=== PATIENT | female | born 1960 | race Caucasian/White ===

== ENCOUNTER → 2016-11-10 | Outpatient (CLI) | payer MEDICARE, MEDICAID ==
[~2016-11-10] MED LIST: /OCUVTA PO; ABIL10TA OR; ACET500C; ACET500C PO; BACL10TA2 PO; BYSTOLIC; ESTR1TAB PO; FERR325T; GABA300C3 PO; IRON325T3 PO; LISI10TA4 PO; MELA3TAB17 PO; MULTIVIT OR; NAPR500T; NEBIVOLOL; NEUR300C OR; OTC SINUS MED; OYST500T OR; ROBA500T PO; TIZA4CAP3 PO; TRAM50TA2; TRAM50TA2 OR; VIT D 2000 PO; VITA-193 PO; VITA400C2 PO; VITA500C OR; VITAMIN B COMPLE1 OR; VITAMIN B12 OR; VITAMIN D50000 UNT; VOLT1GEL24 TD; WELL100T OR; ZANA4CAP OR
--- NOTE | 2016-11-10 15:16 | REPMRS ---
Patient History The patient states she had a clinical breast exam in 10/2016. Patient is postmenopausal. Family history of breast cancer in maternal grandmother under age 50. Benign US guided breast biopsy of the left breast, May 01, 2011. Took hormonal contraceptives for 10 years. Took estrogen for 3 years. Digital Woman Screen Mammo: November 10, 2016 - Exam #: [id number] Bilateral CC and MLO view(s) were taken. Technologist: Rachel Ojeda, Technologist Prior study comparison: April 24, 2014, bilateral bilat screen digital mammo, performed at [facility] ([facility]). March 30, 2013, bilateral bilat screen digital mammo, performed at [facility] ([facility]). March 07, 2012, bilateral bilat screen digital mammo, performed at [facility] ([facility]). FINDINGS: There are scattered fibroglandular densities. There has been no change in the appearance of the mammogram from the prior studies. There is a mild amount of scattered fibroglandular density which is fairly symmetric. There is no interval development of dominant mass, architectural distortion, or clustered microcalcification suggestive of malignancy. ASSESSMENT: BI-RADS/ACR category 1 mammogram. Negative. Recommendation Routine screening mammogram in 1 year (for women over age 40). This mammogram was interpreted with the aid of an FDA-approved computer-aided dectection system. Electronically Signed By: Max Donnelly MD 11/10/16 [id number]
== END ==
LOC: M WHC 14:26
PROVIDERS: ATTEND Obstetrics & Gynecology
DX: Z12.31 Encounter for screening mammogram for malignant neoplasm of breast (principal); Z78.0 Asymptomatic menopausal state; Z92.0 Personal history of contraception

== ENCOUNTER → 2017-09-08 | Outpatient (REF) | payer MEDICARE, MEDICAID ==
[~2017-09-08] MED LIST changes: +GABA-282 PO; -GABA300C3 PO; +VOLT1GEL15 TD; -VOLT1GEL24 TD
== END ==
LOC: M LAB REF 12:22 → M LABDRWAD 12:22
PROVIDERS: ATTEND Psychiatry & Neurology Psychiatry
DX: Z79.899 Other long term (current) drug therapy (principal)

== ENCOUNTER → 2017-09-13 | Outpatient (CLI) | payer MEDICARE, MEDICAID ==
--- NOTE | 2017-09-13 17:28 | REP ---
MRI LEFT FOOT: Multiple sequence obtained in the axial, coronal, and saggital planes. Peroneus brevis and longus tendons distal to the ankle are intact with no tenosynovitis. The flexor hallucis longus, flexor digitorum longus and posterior tibial tendons also appear intact below the ankle. Anterior talofibular ligament is intact. Distal Achilles tendon is intact. Plantar tendon is intact. Normal amount of joint fluid is seen in the hind foot. Small oval cystic structure is seen dorsal to the talonavicular joint measuring approximately 9 x 5 mm. No other cystic nodules are seen. There is mild marrow edema in the base of the 2nd metatarsal which is probably secondary to arthritic changes at the adjacent tarsal metatarsal joint. No other significant abnormal marrow signal is seen. IMPRESSION: No evidence of abnormality in the distal peroneus brevis or longus tendons. No other evidence of tendon or ligament tear. Small cyst dorsal to the talonavicular joint measuring 9 x 5 mm. Mild marrow edema in the base of the 2nd metatarsal, likely secondary to arthritic changes at the adjacent tarsal metatarsal joint. Signed by Isak Jarquin MD 09/15/2017 08:59 A
== END ==
LOC: M RAD 13:34
PROVIDERS: ATTEND Podiatrist
DX: M76.72 Peroneal tendinitis, left leg (principal)

== ENCOUNTER → 2018-06-23 | Outpatient (CLI) | payer MEDICARE, MEDICAID | LOC: M WHC 13:36 | DX: Z12.31 Encounter for screening mammogram for malignant neoplasm of breast (principal); Z98.890 Other specified postprocedural states; Z92.0 Personal history of contraception; Z12.4 Encounter for screening for malignant neoplasm of cervix | CPT/HCPCS: 77067; G0123 ==

== ENCOUNTER → 2018-06-23 | Outpatient (REF) | payer MEDICARE, MEDICAID | LOC: M SFHCWAGY 15:13 | DX: Z12.4 Encounter for screening for malignant neoplasm of cervix (principal) | CPT/HCPCS: G0123 ==

== ENCOUNTER → 2018-08-01 | Outpatient (REF) | payer MEDICARE, MEDICAID ==
[2018-08-01 16:26] LABS: FREE T4 0.79 NG/DL (0.76-1.46)
== END ==
LOC: M LABDRAW1 12:16
DX: R94.6 Abnormal results of thyroid function studies (principal)
CPT/HCPCS: 84443

== ENCOUNTER → 2018-09-08 | Outpatient (CLI) | payer MEDICARE | LOC: M RAD 15:37 | DX: M48.061 Spinal stenosis, lumbar region without neurogenic claudication (principal); M51.26 Other intervertebral disc displacement, lumbar region; M47.896 Other spondylosis, lumbar region | CPT/HCPCS: 72148 ==

== ENCOUNTER → 2019-06-23 | Outpatient (CLI) | payer MEDICARE, MEDICAID ==
[~2019-06-23] MED LIST changes: -/OCUVTA PO; +CYAN500T9 PO; -GABA-282 PO; +GABA-843 PO; +PROS2TAB2 PO; +TIZA4CAP PO; -TIZA4CAP3 PO; -VITA-193 PO
--- NOTE | 2019-06-23 15:17 | REPMRS ---
Patient History The patient states she had a clinical breast exam in 06/2019. Family history of breast cancer under age 50 in maternal grandmother. Benign US guided breast biopsy of the left breast, May 01, 2011. Took hormonal contraceptives for 10 years. Took estrogen for 3 years. 3D TOMOSYNTHESIS WAS PERFORMED. The [facility] lifetime risk for breast cancer is 9.8%. Digital Woman Screen Mammo: June 23, 2019 - Exam #: [id number] Bilateral CC and MLO view(s) were taken. Technologist: Tri Molina, Technologist Prior study comparison: June 23, 2018, bilateral digital woman screen mammo performed at [facility] [employer] to [employer] [facility]. November 10, 2016, digital woman screen mammo performed at [facility] [employer] [facility]. FINDINGS: There are scattered fibroglandular densities. There has been no change in the appearance of the mammogram from the prior studies. There is a mild amount of residual fibroglandular tissue which is fairly symmetric. There is no interval development of dominant mass, architectural distortion, or clustered microcalcification suggestive of malignancy. Assessment: BI-RADS/ACR category 1 mammogram. Negative Mammogram. Recommendation Routine screening mammogram in 1 year (for women over age 40). This mammogram was interpreted with the aid of an FDA-approved computer-aided dectection system. Electronically Signed By: Isak Jarquin MD 06/23/19 [id number]
== END ==
LOC: M WHC 13:29
PROVIDERS: ATTEND Nurse Practitioner Women's Health
DX: Z12.31 Encounter for screening mammogram for malignant neoplasm of breast (principal); Z80.3 Family history of malignant neoplasm of breast; Z86.018 Personal history of other benign neoplasm; Z92.0 Personal history of contraception; Z92.23 Personal history of estrogen therapy
CPT/HCPCS: 77063; 77067; G0463

== ENCOUNTER → 2019-11-09 | Outpatient (CLI) | payer MEDICARE, MEDICAID ==
--- NOTE | 2019-11-09 18:40 | REP ---
Left forearm two views : There is no fracture or dislocation. Mineralization and joint spaces are normal. There are no calcifications or foreign bodies. Impression: Negative left forearm . Electronically Signed by Isak Cha MD 11/09/2019 06:31 P
== END ==
LOC: M ADAMS 18:17
PROVIDERS: ATTEND Physician Assistant
DX: S50.12XA Contusion of left forearm, initial encounter (principal); X58.XXXA Exposure to other specified factors, initial encounter; Y92.89 Other specified places as the place of occurrence of the external cause

== ENCOUNTER → 2019-12-08 | Outpatient (CLI) | payer MEDICARE, MEDICAID ==
[2019-12-08 12:22] LABS: ALBUMIN 3.5 GM/DL (3.2-5.2); BILIRUBIN,TOTAL 0.5 MG/DL (0.2-1.0); CALCIUM LEVEL 8.9 MG/DL (8.8-10.2); CHOLESTEROL RISK RATIO 2.131 (<5); CREATININE FOR GFR 2.27 MG/DL (0.55-1.30); GLOMERULAR FILTRATION RATE 23.4 (>45); THYROID STIMULATING HORMONE 0.473 uIU/ML (0.358-3.740); TOTAL PROTEIN 5.9 GM/DL (6.4-8.2)
== END ==
LOC: M PLALAB 09:13
PROVIDERS: ATTEND Physician Assistant
DX: Z00.01 Encounter for general adult medical examination with abnormal findings (principal); E21.2 Other hyperparathyroidism; Z79.899 Other long term (current) drug therapy

== ENCOUNTER → 2020-06-25 | Outpatient (CLI) | payer MEDICARE, MEDICAID ==
[~2020-06-25] MED LIST changes: +CYAN500T10 PO; -CYAN500T9 PO
--- NOTE | 2020-06-25 15:18 | REPMRS ---
Patient History The patient states she had a clinical breast exam in June 2020. Family history of breast cancer under age 50 in maternal grandmother. Benign US guided breast biopsy of the left breast, May 01, 2011. Took hormonal contraceptives for 10 years. Took estrogen for 3 years. 3D TOMOSYNTHESIS WAS PERFORMED. [facility] lifetime risk for breast cancer is 9.4%. VOLPARA DENSITY A. Digital Woman Screen Mammo: June 25, 2020 - Exam #: [id number] Bilateral CC and MLO view(s) were taken. Technologist: RT Jim Prior study comparison: June 23, 2019, bilateral digital woman screen mammo performed at [facility]. June 23, 2018, bilateral digital woman screen mammo performed at [facility]. FINDINGS: There are scattered fibroglandular densities. There has been no change in the appearance of the mammogram from the prior studies. There is a mild amount of residual fibroglandular tissue which is fairly symmetric. There is no interval development of dominant mass, architectural distortion, or clustered microcalcification suggestive of malignancy. Assessment: BI-RADS/ACR category 1 mammogram. Negative Mammogram. Recommendation Routine screening mammogram in 1 year (for women over age 40). This mammogram was interpreted with the aid of an FDA-approved computer-aided dectection system. Electronically Signed By: Isak Jarquin MD 06/25/20 1524
== END ==
LOC: M WHC 13:57
PROVIDERS: ATTEND Nurse Practitioner Women's Health
DX: Z01.419 Encounter for gynecological examination (general) (routine) without abnormal findings (principal); Z12.31 Encounter for screening mammogram for malignant neoplasm of breast; Z86.018 Personal history of other benign neoplasm; Z92.0 Personal history of contraception; Z92.23 Personal history of estrogen therapy
CPT/HCPCS: 77063; 77067; G0101

== ENCOUNTER → 2020-10-16 | Outpatient (CLI) | payer MEDICARE, MEDICAID ==
[~2020-10-16] MED LIST changes: -CYAN500T10 PO; +GABA-282 PO; -GABA-843 PO; +VITA500T37 PO
[2020-10-16 12:21] LABS: CHOLESTEROL RISK RATIO 2.121 (<5)
[2020-10-16 13:21] LABS: HEMOGLOBIN A1c 5.1 %
== END ==
LOC: M PLALAB 08:48
PROVIDERS: ATTEND Psychiatry & Neurology Psychiatry
DX: Z79.899 Other long term (current) drug therapy (principal)

== ENCOUNTER → 2020-12-24 | Outpatient (CLI) | payer MEDICARE, MEDICAID ==
[~2020-12-24] MED LIST changes: +LISI10TA22 PO; -LISI10TA4 PO
--- NOTE | 2020-12-24 15:48 | REPPI ---
INDICATION: R06.02 SHORTNESS OF BREATH. COMPARISON: None TECHNIQUE: Upright PA and lateral chest. FINDINGS: Lung murphy are clear is set for small linear densities in the left costophrenic angle, nonspecific, atelectasis versus scarring. Cardiac size is upper normal. The reji and mediastinum are unremarkable. There is thoracic scoliosis convex right. Skeletal structures are otherwise unremarkable. IMPRESSION: Small horizontal linear densities in the left costophrenic angle which could represent atelectasis or scarring. Scoliosis. Otherwise, negative PA and lateral chest. <Electronically signed by Isak Cha > 12/24/20 [id number]
== END ==
LOC: M PLAIMG 12:05
PROVIDERS: ATTEND Physician Assistant
DX: R06.02 Shortness of breath (principal)

== ENCOUNTER → 2021-01-24 | Outpatient (REF) | payer MEDICARE, MEDICAID ==
[2021-01-24 17:39] LABS: PERCENT SATURATION 18.1 % (13.2-45.0)
== END ==
LOC: M LAB REF 16:34
PROVIDERS: ATTEND Internal Medicine Nephrology
DX: N18.4 Chronic kidney disease, stage 4 (severe) (principal); E61.1 Iron deficiency

== ENCOUNTER → 2021-04-11 | Outpatient (CLI) | payer MEDICARE, MEDICAID ==
[~2021-04-11] MED LIST changes: +BUPR1TAB56 PO; +CETI-24 PO; +GREE400C PO; +HYDR-3713 PO; +HYDR12.55 PO; +LEXA1TAB2 PO; +MAGN400C2 PO; +ROPI1TAB3 PO; +TRAM50TA2 PO
== END ==
LOC: M PLAIMG 09:41
PROVIDERS: ATTEND Nurse Practitioner Family
DX: M47.812 Spondylosis without myelopathy or radiculopathy, cervical region (principal); M25.511 Pain in right shoulder

== ENCOUNTER → 2021-06-03 | Outpatient (REF) | payer MEDICARE, MEDICAID ==
[~2021-06-03] MED LIST changes: -BUPR1TAB56 PO; -CETI-24 PO; -GREE400C PO; -HYDR-3713 PO; -HYDR12.55 PO; -LEXA1TAB2 PO; -MAGN400C2 PO; -ROPI1TAB3 PO; -TRAM50TA2 PO
== END ==
LOC: M LAB REF 17:03
PROVIDERS: ATTEND Internal Medicine Nephrology
DX: E83.41 Hypermagnesemia (principal)

== ENCOUNTER → 2021-06-17 | Outpatient (CLI) | payer MEDICARE, MEDICAID ==
[~2021-06-17] MED LIST changes: +BUPR1TAB56 PO; +CETI-24 PO; +GREE400C PO; +HYDR-3713 PO; +HYDR12.55 PO; +LEXA1TAB2 PO; +MAGN400C2 PO; +ROPI1TAB3 PO; +TRAM50TA2 PO
--- NOTE | 2021-06-17 13:02 | REPVR ---
PROCEDURE INFORMATION: Exam: MR Cervical Spine Without Contrast Exam date and time: 06/17/2021 9:49 AM Age: 61 years old Clinical indication: Radicular pain (radiculopathy); Cervical region; Additional info: Cervical spine pain to right arm TECHNIQUE: Imaging protocol: Multiplanar magnetic resonance images of the cervical spine without contrast. COMPARISON: CR Spine, Cervical 04/11/2021 10:07 AM FINDINGS: Vertebrae: Unremarkable. Spinal cord: Normal signal. No cord compression. C2-C3: There is disc desiccation. C3-C4: There is disc desiccation. There is mild ventral ridging which flattens the ventral thecal sac. There is mild spinal canal stenosis. C4-C5: There is degenerative disc disease including disc space narrowing and dessication. There is a moderate disc/osteophyte complex, partial toward the left, that flattens the ventral thecal sac and compromises the left neural foramen. There is bilateral uncovertebral joint arthropathy, worse on the left. There is moderate left-sided neuroforaminal narrowing. C5-C6: There is disc desiccation. There is a moderate disc/osteophyte complex, partial toward the right, that flattens the ventral thecal sac and compromises the right neural foramen. There is bilateral uncovertebral joint arthropathy, worse on the right. There is moderate right-sided neuroforaminal narrowing. C6-C7: There is disc desiccation. C7-T1: No significant disc disease. No significant spinal stenosis. Soft tissues: Unremarkable. IMPRESSION: Multilevel degenerative changes causing varying degrees of neuroforaminal narrowing. Moderate right-sided neural foraminal narrowing at C5/6. Please see details above. Electronically signed by: Rigo Trejo On 06/17/2021 13:02:42 PM
== END ==
LOC: M RAD 09:05
PROVIDERS: ATTEND Nurse Practitioner Family
DX: M54.12 Radiculopathy, cervical region (principal)

== ENCOUNTER 2021-07-06 11:34 | Emergency (ER) | payer MEDICARE, MEDICAID ==
[~2021-07-06] VITALS: Ht 175.3 cm; Wt 133.0 kg
[~2021-07-06 11:34] MED LIST changes: -BUPR1TAB56 PO; -CETI-24 PO; -GREE400C PO; -HYDR-3713 PO; -HYDR12.55 PO; -LEXA1TAB2 PO; -MAGN400C2 PO; -ROPI1TAB3 PO; -TRAM50TA2 PO
--- NOTE | 2021-07-06 12:04 | REP ---
INDICATION: TRAUMA. COMPARISON: None. TECHNIQUE: Four views of the right wrist are provided. FINDINGS: Four views of the right wrist demonstrate impacted comminuted fracture of the distal radial metaphysis with dorsal displacement and some apex volar angulation. There is an associated fracture of the ulnar styloid which is also slightly comminuted. Diffuse osteopenia is noted. No carpal or metacarpal fracture is seen. IMPRESSION: Impacted comminuted mildly displaced distal radial fracture. Associated ulnar styloid chip fracture. <Electronically signed by Max Donnelly > 07/06/21 [id number]
--- NOTE | 2021-07-06 12:06 | REP ---
INDICATION: TRAUMA. COMPARISON: None. TECHNIQUE: AP and lateral views of the right forearm. FINDINGS: AP and latter views of the oral right forearm demonstrate a comminuted and impacted fracture of the distal radius as described in the wrist radiographs. There is an associated also slightly comminuted fracture of the ulnar styloid. No proximal radial or ulnar fracture is appreciated. There are 2 metallic densities in the antecubital soft tissues possibly surgical clips. IMPRESSION: Distal radial and ulnar fractures. No more proximal fracture seen. Metallic densities in the soft tissues of the antecubital fossa. <Electronically signed by Max Donnelly > 07/06/21 [id number]
[2021-07-06] MEDS ORDERED: LEXA1TAB2 PO (12:10)
[2021-07-06] MEDS ORDERED: HYDR12.55 PO (12:10)
[2021-07-06] MEDS ORDERED: GREE400C PO (12:10)
[2021-07-06] MEDS ORDERED: ROPI1TAB3 PO (12:10)
[2021-07-06] MEDS ORDERED: BUPR1TAB56 PO (12:10)
[2021-07-06] MEDS ORDERED: TRAM50TA2 PO (12:10)
[2021-07-06] MEDS ORDERED: MAGN400C2 PO (12:10)
[2021-07-06] MEDS ORDERED: fentaNYL 100 MCG/2 ML INJECTION (J3010) IV ONE (12:30)
[2021-07-06] MEDS ORDERED: LIDOCAINE 2% MDV 20ML VIAL SC ONE (12:35)
[2021-07-06] MEDS ORDERED: ONDANSETRON 4MG/2ML VIAL IV ONE (12:55)
[2021-07-06 13:03] LABS: BASO # 0.1 10^3/uL (0.0-0.2); BASO % 0.7 % (0.0-1.0); EOS # 0.2 10^3/uL (0.0-0.5); EOS % 2.4 % (0.0-3.0); HEMATOCRIT 43.4 % (36.0-47.0); HEMOGLOBIN 13.6 g/dl (12.0-15.5); LYMPH # 0.9 10^3/uL (1.5-5.0); LYMPH % 12.9 % (24.0-44.0); MEAN CORPUSCULAR HEMOGLOBIN 31.3 pg (27.0-33.0); MEAN CORPUSCULAR HGB CONC 31.3 g/dl (32.0-36.5); MEAN CORPUSCULAR VOLUME 99.8 fl (80.0-96.0); MONO # 0.5 10^3/uL (0.0-0.8); MONO % 7.5 % (2.0-8.0); NEUTROPHILS # 5.4 10^3/uL (1.5-8.5); NEUTROPHILS % 76.1 % (36.0-66.0); PLATELET COUNT, AUTOMATED 199 10^3/uL (150-450); RED BLOOD COUNT 4.35 10^6/uL (4.00-5.40); WHITE BLOOD COUNT 7.1 10^3/uL (4.0-10.0)
--- NOTE | 2021-07-06 13:08 | REP ---
INDICATION: fall pain with palpation. COMPARISON: None. TECHNIQUE: Four views of the right elbow. FINDINGS: Four views of the right elbow show no evidence of fracture or subluxation. There is minimal proximal ulnar spurring. There are 3 metallic densities and some vascular calcification in the antecubital soft tissues. A tortuous vascular structure is seen in the anterior soft tissues of the upper arm. The findings are consistent with an arteriovenous fistula for dialysis. IMPRESSION: Patient is status post AV fistula antecubital fossa. No acute bony abnormality. <Electronically signed by Max Donnelly > 07/06/21 0454
[2021-07-06 13:20] LABS: CALCIUM LEVEL 8.6 MG/DL (8.8-10.2); CREATININE FOR GFR 2.4 MG/DL (0.55-1.30); GLOMERULAR FILTRATION RATE 21.8 (>45); POTASSIUM SERUM 4.7 MEQ/L (3.5-5.1)
[2021-07-06] MEDS ORDERED: HYDR-3713 PO (15:18)
--- NOTE | 2021-07-06 15:43 | REP ---
INDICATION: c arm for reduction. COMPARISON: Comparison wrist radiographs are from earlier this date. TECHNIQUE: Two views, 74 seconds of fluoroscopy time is reported. FINDINGS: A sequence of 2 fluoroscopically obtained spot radiographs of the right wrist through overlying cast material document closed reduction IMPRESSION: Procedural imaging. <Electronically signed by Max Donnelly > 07/06/21 [id number]
--- NOTE | 2021-07-06 15:47 | REP ---
INDICATION: post reduction. COMPARISON: Wrist radiographs from earlier this date. TECHNIQUE: Helical scanning is acquired. The right wrist is scanned through overlying cast material. 2 mm axial images are re-formatted. Coronal and sagittal MPR images are provided. Surface rendered 3D imaging is generated. FINDINGS: There is improved alignment in the distal radial fracture. There is no visible angulation or dorsal displacement. However, the comminuted distal radial fracture is again seen to be impacted. On coronal MPR images there is 9 mm of impaction on the radial surface of the distal radius. On sagittal MPR images there is 4.5 mm of impaction visible in the distal radius. The distal radial fracture is intra-articular. The articular margin is well aligned. There is an ulnar styloid chip fracture. No carpal fracture is seen. IMPRESSION: Comminuted impacted fracture of the distal radial metaphysis in improved alignment. Ulnar styloid chip fracture. <Electronically signed by Max Donnelly > 07/06/21 [id number]
[2021-07-06 16:16] VITALS: BP 186/86
--- NOTE | 2021-07-06 17:56 | CR ---
CONSULTATION DATE: 07/06/2021 REASON FOR CONSULTATION: Right wrist pain. CHIEF COMPLAINT: Right wrist pain. HISTORY OF PRESENT ILLNESS: The patient is a 61-year-old female who was walking earlier today where she fell onto her outstretched right hand. She had immediate onset of pain in her wrist and deformity and presented to the emergency department for evaluation. She also had a little of pain in her elbow but this was minimal. She denied any numbness or tingling but just severe pain to her wrist. No other areas of pain other than what is above. PAST MEDICAL HISTORY: Hypertension, depression and kidney disease. PAST SURGICAL HISTORY: She had a right elbow AV fistula done recently. MEDICATIONS: See med reconciliation. ALLERGIES: BACLOFEN, CELEBREX, METOCLOPRAMIDE, NABUMETONE, ROFECOXIB, VENLAFAXINE. SOCIAL HISTORY: She lives locally. REVIEW OF SYSTEMS: General: Well-developed, well-nourished, in no acute distress. Neuro: Alert and oriented x4. Psych: Normal mood and affect. Cardiac: Regular rate and rhythm. Respiratory: Nonlabored breathing. Equal chest rise and fall. Abdomen: Nontender, nondistended. Skin: Intact, no ecchymosis, swelling or breaks in skin. Focused exam of right upper extremity demonstrates obvious deformity about the right wrist. There are no breaks in the skin or significant ecchymosis. The patient is tender on palpation over the wrist. The patient is able to move her fingers but neurovascular exam difficult secondary to pain. She has no numbness or tingling in the median nerve distribution. Compartments of her forearm are soft and compressible. No other areas of tenderness on palpation of the forearm. Slight tenderness to palpation around the elbow where the AV fistula is also located but full range of motion there. Range of motion of the wrist is limited secondary to pain. Fingers are able to move and no tenderness to palpation in her fingers. She is intact to light touch on the radial, ulnar, median nerve. Motor is intact in AIN, PIN, radial and ulnar nerves. IMAGING: Review of the radiographs demonstrates a right distal radius fracture and ulnar styloid fracture. There is apex volar angulation of about 30 degrees dorsal angulation. There is also shortening of the radius relative to the ulna as well. X-rays of the elbow were normal. ASSESSMENT: This is a 61-year-old female with a comminuted, dorsally displaced distal radius fracture. I had a long discussion with the patient about the nature of condition and treatment options. For now, I recommend closed reduction and immobilization in a sugar tong splint. I discussed surgical options with the patient. She would like to avoid surgery at all costs. She was agreeable to a hematoma block and closed reduction with manipulation. Consent was obtained. Timeout was performed. The site was marked and a hematoma block was done under sterile conditions with about 12 mL of 1% lidocaine. Confirmation of needle position was identified with the use of mini-C-arm. She was hung in traction but no weight was applied because I did not want to put any weight on the AV fistula. She was held in this position for approximately 15 minutes. A closed reduction was performed and a sugar tong splint was applied that was well molded. Closed reduction radiographs demonstrate improvement in alignment and height. Post-reduction CT scan was performed. Plan going forward will be the patient to do strict elevation and follow up on with Dr. Shirley in clinic for repeat x-rays and if reduction is acceptable, overwrap of the splint with fiberglass and takedown of the elbow portion to allow elbow motion. Then the next visit will be with me on July 17 for removal of cast and x-rays and then placement back into a cast. The patient was agreeable to this plan. We will have her follow up later this week. We will likely recommend that she also follow up with her primary care provider for evaluation of osteoporosis.
[2021-07-07] MEDS ORDERED: CETI-24 PO (14:24)
== END 2021-07-06 16:19 | disposition home or self-care (01) ==
LOC: M ED 11:34
DX: S52.501A Unspecified fracture of the lower end of right radius, initial encounter for closed fracture (principal); S52.601A Unspecified fracture of lower end of right ulna, initial encounter for closed fracture; W10.8XXA Fall (on) (from) other stairs and steps, initial encounter; Y92.018 Other place in single-family (private) house as the place of occurrence of the external cause; I12.9 Hypertensive chronic kidney disease with stage 1 through stage 4 chronic kidney disease, or unspecified chronic kidney disease; N18.9 Chronic kidney disease, unspecified; G25.81 Restless legs syndrome; F33.9 Major depressive disorder, recurrent, unspecified; F41.9 Anxiety disorder, unspecified; Z98.84 Bariatric surgery status; Z88.8 Allergy status to other drugs, medicaments and biological substances; Z79.899 Other long term (current) drug therapy
CPT/HCPCS: 25605; 73080; 73090; 73110; 73200; 76000; 80048; 85025; 96374; 96375; 99284; J2405; J3010

== ENCOUNTER 2021-07-07 14:01 | Day surgery (SDC) | payer MEDICARE, MEDICAID ==
[~2021-07-07] VITALS: Ht 175.3 cm; Wt 132.4 kg
[~2021-07-07 14:01] MED LIST changes: +BUPIVACAINE/EPIN 0.25% 30 ML VIAL As Ordered ONE; +BUPR1TAB56 PO; +GREE400C PO; +HYDR-3713 PO; +HYDR12.55 PO; +LEXA1TAB2 PO; +MAGN400C2 PO; +ROPI1TAB3 PO; +TRAM50TA2 PO
[2021-07-07] MEDS ORDERED: CETI-24 PO (14:24)
[2021-07-07] MEDS ORDERED: ceFAZolin SOD 2 GM in IV 1 EA IV ONE (14:25)
[2021-07-07] MEDS ORDERED: dexameTHASONE 4 MG/ML 1ML VIAL (J1100 PER 1MG) As Ordered ONE (15:10)
[2021-07-07] MEDS ORDERED: SUGAMMADEX SODIUM 500 MG/5 ML VIAL (BRIDION) As Ordered ONE (15:10)
[2021-07-07] MEDS ORDERED: METOCLOPRAMIDE INJ 10MG/2ML VIAL (J2765 PER 1) As Ordered ONE (15:10)
[2021-07-07] MEDS ORDERED: ONDANSETRON 4MG/2ML VIAL As Ordered ONE (15:10)
[2021-07-07] MEDS ORDERED: propofoL 200 MG/20 ML VIAL As Ordered ONE (15:10)
[2021-07-07] MEDS ORDERED: MIDAZOLAM INJ 2MG/2ML VIAL (J2250 PER 1MG) As Ordered ONE (15:10)
[2021-07-07] MEDS ORDERED: fentaNYL 250 MCG/5 ML INJECTION (J3010) As Ordered ONE (15:10)
[2021-07-07] MEDS ORDERED: LIDOCAINE 2% 100MG/5ML SDV (FOR ANES.) As Ordered ONE (15:10)
[2021-07-07] MEDS ORDERED: ROCURONIUM BROMIDE 50 MG/5 ML VIAL As Ordered ONE ×2 (15:10→15:38)
[2021-07-07] MEDS ORDERED: ACETAMINOPHEN 1000MG 100ML IV BTL (OFIRMEV) (J0131 PER 10MG) As Ordered ONE (15:25)
[2021-07-07] MEDS ORDERED: LABETALOL 100MG/20ML VIAL As Ordered ONE (16:06)
[2021-07-07] MEDS ORDERED: TRANEXAMIC ACID 100 MG/ML 10ML VIAL As Ordered ONE (17:17)
[2021-07-07] MEDS ORDERED: hydrALAZINE 20MG/ML 1ML VIAL (J0360 PER 20MG) As Ordered ONE (18:25)
[2021-07-07] MEDS ORDERED: ONDANSETRON 4MG/2ML VIAL IV PRN (19:35)
[2021-07-07] MEDS ORDERED: LR 1,000 ML IV SCH ×2 (19:35)
[2021-07-07] MEDS ORDERED: fentaNYL 100 MCG/2 ML INJECTION (J3010) IV PRN (19:35)
[2021-07-07 20:57] VITALS: BP 171/78
[2021-07-08] MEDS ORDERED: UNRESOLVED CLARIFICATION ENTRY XX SCH (00:01)
--- NOTE | 2021-07-08 07:44 | REP ---
INDICATION: RIGHT WRIST FRACTURE. COMPARISON: None. TECHNIQUE: Seven views. 96.5 seconds of fluoroscopy time is reported. FINDINGS: A sequence of 7 last image hold fluoroscopically obtained spot radiographs of the right wrist document open reduction internal fixation procedure IMPRESSION: Procedural imaging. <Electronically signed by Max Donnelly > 07/08/21 0796
--- NOTE | 2021-07-09 18:23 | RO ---
OPERATIVE NOTE DATE OF OPERATION: 07/07/2021 PREOPERATIVE DIAGNOSIS: 1. Right distal radius fracture, closed, ICD S52.501A, modifier 80 for executive chef assistant surgeon. I was the executive chef assistant surgeon. 2. Carpal tunnel syndrome, ICD-10 G56.00, also modifier 80 for executive chef assistant surgeon, myself. POSTOPERATIVE DIAGNOSIS: 1. Right distal radius fracture, closed, ICD S52.501A, modifier 80 for executive chef assistant surgeon. I was the executive chef assistant surgeon. 2. Carpal tunnel syndrome, ICD-10 G56.00, also modifier 80 for executive chef assistant surgeon, myself. OPERATION PERFORMED: Right open carpal tunnel release. Open reduction and internal fixation of the right distal radius fracture. SURGEON: Marciano Reynolds MD WASTE WATER WORKER: Porter Ramirez MD STAFF SURGEON: Marciano Reynolds MD ANESTHESIA: INDICATION FOR OPERATION: The patient is a 61-year-old female who presented to the emergency department the day prior to surgery with a right displaced and angulated distal radius fracture. She underwent a closed reduction and splint immobilization with a sugar tong splint. She had plan of nonoperative treatment. However on the day after reduction, she presented to the clinic with worsening pain, swelling and new onset numbness and tingling in the distribution of the median nerve. She was seen by Dr. Reynolds in clinic who recognized the acute carpal tunnel syndrome. He loosened the splint and removed it and the carpal tunnel syndrome did not resolve. She was then indicated for acute carpal tunnel release as well as open reduction and internal fixation of the distal radius fracture. She was counseled on the risks of surgery to include but not limited to bleeding, infection, damage to local structures, pain, stiffness, need for further surgery and possible residual effects of the carpal tunnel syndrome. She was able to sign informed consent. All questions were answered to her full satisfaction. MATERIAL FORWARDED: None. DESCRIPTION OF FINDINGS: The patient had a contused and swollen median nerve which was identified through the surgical incision for the distal radius fracture. This incision was extended distally to allow for a adequate carpal tunnel release. The distal radius fracture was then amenable to open reduction and internal fixation and we were able to get satisfactory post-reduction parameters with regards to radial height, inclination and volar tilt. INFECTION CLASSIFICATION: 1, clean. ESTIMATED BLOOD LOSS: 50 mL DESCRIPTION OF THE OPERATION: The patient was met in the preoperative holding area where the correct name, identity, operative site, laterality and procedure were verified to be correct without discrepancies. The operative site was marked by Dr. Reynolds. The patient was then taken to the operating room by nursing and anesthesia providers, placed supine on the operating room table with the hand table attachment. The patient was then placed under general anesthetic and placed under advanced airway without complication. The patient's right upper extremity was then prepped and draped in the usual sterile fashion. A timeout was then called and the patient's name, identity, operative site, laterality and procedure were verified to be correct without discrepancies. We also confirmed antibiotic administration with weight based Ancef within one hour of incision as well. Please note there was no tourniquet used because of her AV fistula on that right arm. After the timeout was completed, an FCR approach was marked out on the skin by Dr. Reynolds and this was extended over to the overlying area of the carpal tunnel to allow for adequate exposure and carpal tunnel release. The incision was carried down to the level of the soft tissues and a standard approach was done in the standard fashion. The distal radius was encountered and we were able to identify the median nerve which was neurolysed and followed into the carpal tunnel which was then adequately released. The rest of the distal radius was adequately exposed and the brachioradialis was tenotomized. The fracture was mobilized and pinned in place through the radial styloid. An adequate reduction was achieved as seen under AP and lateral radiographs. A plate was chosen and placed to the appropriate position as seen on AP and lateral radiographs. The plate was fixed distally first with locking screws, taking care not to penetrate through the dorsal cortex and cause irritation to the extensor tendons. Once we had adequate purchase into the distal fragment, the proximal fragment was then secured with cortical nonlocking screws. Once this was completed, the reduction and fixation was then assessed under fluoroscopy and found to be adequate. The wound was then copiously irrigated and closed in layers. A dorsal splint was then applied after sterile dressings were placed. Please note that local anesthetic was used to infiltrate the area around the wound. The wound was swollen but was able to be closed without complication. It was closed with interrupted horizontal mattress sutures. The patient was then aroused from anesthesia after the splint was placed. She tolerated the procedure well without any complication. Postoperatively, she will be in the splint for about 1-2 weeks. She will follow up for wound check, radiographs and transition to either a cast or a brace depending on how everything looks. The patient was discharged on the same day with plan to follow up in about two weeks or so. The patient received preop antibiotics. No postop antibiotics are indicated. No postop DVT chemoprophylaxis is indicated.
--- NOTE | 2021-07-15 12:40 | IPNPDOC ---
Text Note Date of Service The patient was seen on 07/07/21. NOTE Surgical note addendum: The patient was taken to the operating room on an urgent basis for acute carpal tunnel syndrome to the right wrist which was associated with fracture. After performing the modified Wayne volar approach for exposure of the wrist fracture, I was joined by Dr. Ramirez, who has a special interest in hand and wrist injuries for the remainder of the procedure. I assisted Dr. Ramirez as he performed the carpal tunnel release open reduction and internal fixation of the right wrist with hardware placement under fluoroscopic guidance. Please see Dr. Ramirez's dictation for details of the surgical procedure, which I have reviewed today, 07/15/2021. DEMETRIUS HERNANDEZ MD Jul 15, 2021 12:40
== END 2021-07-07 21:19 | disposition home or self-care (01) ==
LOC: M SDC 14:01
PROVIDERS: ATTEND Orthopaedic Surgery Adult Reconstructive Orthopaedic Surgery
DX: S52.501A Unspecified fracture of the lower end of right radius, initial encounter for closed fracture (principal); G56.01 Carpal tunnel syndrome, right upper limb; X58.XXXA Exposure to other specified factors, initial encounter; Y92.89 Other specified places as the place of occurrence of the external cause; N18.30 Chronic kidney disease, stage 3 unspecified; I12.9 Hypertensive chronic kidney disease with stage 1 through stage 4 chronic kidney disease, or unspecified chronic kidney disease; D64.9 Anemia, unspecified; N25.81 Secondary hyperparathyroidism of renal origin; G47.33 Obstructive sleep apnea (adult) (pediatric); N17.9 Acute kidney failure, unspecified; R60.9 Edema, unspecified; R10.9 Unspecified abdominal pain; M54.9 Dorsalgia, unspecified; M19.90 Unspecified osteoarthritis, unspecified site; F32.9 Major depressive disorder, single episode, unspecified; G25.81 Restless legs syndrome; Z98.84 Bariatric surgery status; Z79.899 Other long term (current) drug therapy; Z79.891 Long term (current) use of opiate analgesic; Z79.890 Hormone replacement therapy; Z88.8 Allergy status to other drugs, medicaments and biological substances
CPT/HCPCS: 25608; 64721; 76000; C1713; J0131; J0360; J0690; J1100; J2250; J2405; J2765; J3010; U0002

== ENCOUNTER → 2021-07-14 | Outpatient (CLI) | payer MEDICARE, MEDICAID ==
[~2021-07-14] MED LIST changes: -BUPIVACAINE/EPIN 0.25% 30 ML VIAL As Ordered ONE; +CETI-24 PO
--- NOTE | 2021-07-14 14:18 | REP ---
INDICATION: RT WRIST FX. COMPARISON: 07/06/2021 TECHNIQUE: AP and lateral views of the right wrist FINDINGS: Patient is status post open reduction and fixation for distal radial fracture. Callus formation suggesting healing noted. Small unfused ulnar styloid fracture remains stable in appearance. IMPRESSION: Satisfactory open reduction and fixation with early healing. <Electronically signed by Alfonso Anderson > 07/14/21 [id number]
== END ==
LOC: M SOG 14:02
PROVIDERS: ATTEND Orthopaedic Surgery
DX: S52.501A Unspecified fracture of the lower end of right radius, initial encounter for closed fracture (principal)

== ENCOUNTER → 2021-08-21 | Outpatient (CLI) | payer MEDICARE, MEDICAID ==
--- NOTE | 2021-08-21 13:42 | REP ---
INDICATION: RT WRIST FX. COMPARISON: 07/06/2021 TECHNIQUE: AP, lateral, oblique views of the right wrist FINDINGS: Patient is status post satisfactory open reduction and fixation for comminuted distal radial metaphyseal fracture. Callus formation and periosteal reaction noted consistent with healing. Ulnar styloid fracture is again identified and unchanged in appearance. Carpal bones are grossly stable/intact. IMPRESSION: Status post open reduction and fixation for distal radial fracture. <Electronically signed by Alfonso Anderson > 08/21/21 [id number]
== END ==
LOC: M SOG 08:45
PROVIDERS: ATTEND Student in an Organized Health Care Education/Training Program
DX: S52.501D Unspecified fracture of the lower end of right radius, subsequent encounter for closed fracture with routine healing (principal); Y92.9 Unspecified place or not applicable; Y93.9 Activity, unspecified; Y99.9 Unspecified external cause status

== ENCOUNTER → 2021-09-25 | Outpatient (CLI) | payer MEDICARE, MEDICAID ==
--- NOTE | 2021-09-25 11:01 | REP ---
INDICATION: RT WRIST FX. COMPARISON: 08/21/2021 TECHNIQUE: AP, lateral, bilateral oblique views of the right wrist FINDINGS: Evidence for prior open reduction and fixation with stable position to the orthopedic hardware and evidence for fracture healing. Remainder of the examination is stable and within normal limits. IMPRESSION: Healing distal radius fracture. <Electronically signed by Alfonso Anderson > 09/25/21 105
== END ==
LOC: M SOG 08:13
PROVIDERS: ATTEND Student in an Organized Health Care Education/Training Program
DX: S52.501S Unspecified fracture of the lower end of right radius, sequela (principal); Y92.9 Unspecified place or not applicable

== ENCOUNTER → 2021-10-07 | Outpatient (REF) | payer OTHER, MEDICAID | LOC: M LAB REF 17:08 | PROVIDERS: ATTEND Nurse Practitioner Family | DX: N18.4 Chronic kidney disease, stage 4 (severe) (principal) ==

== ENCOUNTER → 2021-12-16 | Outpatient (CLI) | payer OTHER, MEDICAID ==
[2021-12-16 10:59] LABS: HEMOGLOBIN A1c 5.4 %
== END ==
LOC: M PLALAB 08:57
PROVIDERS: ATTEND Psychiatry & Neurology Psychiatry
DX: Z79.899 Other long term (current) drug therapy (principal)

== ENCOUNTER → 2022-01-01 | Outpatient (CLI) | payer MEDICARE, MEDICAID | LOC: M SOG 09:48 | PROVIDERS: ATTEND Student in an Organized Health Care Education/Training Program | DX: S52.501D Unspecified fracture of the lower end of right radius, subsequent encounter for closed fracture with routine healing (principal); X58.XXXD Exposure to other specified factors, subsequent encounter; Y92.89 Other specified places as the place of occurrence of the external cause ==

== ENCOUNTER → 2022-01-16 | Outpatient (CLI) | payer MEDICARE, MEDICAID | LOC: M LABSMTC 09:35 | PROVIDERS: ATTEND Surgery Vascular Surgery | DX: N18.6 End stage renal disease (principal) ==

== ENCOUNTER → 2022-01-28 | Outpatient (CLI) | payer MEDICARE, MEDICAID | LOC: M SOG 08:17 | PROVIDERS: ATTEND Orthopaedic Surgery Adult Reconstructive Orthopaedic Surgery | DX: M25.562 Pain in left knee (principal); S52.501D Unspecified fracture of the lower end of right radius, subsequent encounter for closed fracture with routine healing; G56.01 Carpal tunnel syndrome, right upper limb ==

== ENCOUNTER → 2022-02-26 | Outpatient (CLI) | payer MEDICARE, MEDICAID | LOC: M SOG 09:39 | PROVIDERS: ATTEND Student in an Organized Health Care Education/Training Program | DX: S52.501D Unspecified fracture of the lower end of right radius, subsequent encounter for closed fracture with routine healing (principal); G56.01 Carpal tunnel syndrome, right upper limb ==

== ENCOUNTER → 2022-06-03 | Outpatient (CLI) | payer MEDICARE, MEDICAID | LOC: M SOG 11:18 | PROVIDERS: ATTEND Orthopaedic Surgery Adult Reconstructive Orthopaedic Surgery | DX: M17.12 Unilateral primary osteoarthritis, left knee (principal) ==

== ENCOUNTER → 2022-06-25 | Outpatient (CLI) | payer MEDICARE, MEDICAID | LOC: M SOG 10:12 | PROVIDERS: ATTEND Student in an Organized Health Care Education/Training Program | DX: S52.501D Unspecified fracture of the lower end of right radius, subsequent encounter for closed fracture with routine healing (principal) ==

== ENCOUNTER → 2022-06-26 | Outpatient (CLI) | payer MEDICARE, MEDICAID | LOC: M WHC 10:07 | PROVIDERS: ATTEND Nurse Practitioner Family | DX: Z12.31 Encounter for screening mammogram for malignant neoplasm of breast (principal) ==

== ENCOUNTER → 2022-06-26 | Outpatient (REF) | payer MEDICARE, MEDICAID | LOC: M PLALAB 13:46 | PROVIDERS: ATTEND Nurse Practitioner Family | DX: Z12.4 Encounter for screening for malignant neoplasm of cervix (principal); R87.810 Cervical high risk human papillomavirus (HPV) DNA test positive ==

== ENCOUNTER → 2022-07-31 | Outpatient (CLI) | payer MEDICARE, MEDICAID ==
[2022-07-31 17:28] LABS: BASO # 0.1 10^3/uL (0.0-0.2); BASO % 0.9 % (0.0-1.0); EOS # 0.3 10^3/uL (0.0-0.5); EOS % 5.3 % (0.0-3.0); HEMATOCRIT 40.7 % (36.0-47.0); HEMOGLOBIN 12.5 g/dl (12.0-15.5); LYMPH # 1.1 10^3/uL (1.5-5.0); LYMPH % 19.8 % (24.0-44.0); MEAN CORPUSCULAR HEMOGLOBIN 31.4 pg (27.0-33.0); MEAN CORPUSCULAR HGB CONC 30.7 g/dl (32.0-36.5); MEAN CORPUSCULAR VOLUME 102.3 fl (80.0-96.0); MONO # 0.7 10^3/uL (0.0-0.8); MONO % 12.7 % (2.0-8.0); NEUTROPHILS # 3.4 10^3/uL (1.5-8.5); NEUTROPHILS % 60.9 % (36.0-66.0); PLATELET COUNT, AUTOMATED 185 10^3/uL (150-450); RED BLOOD COUNT 3.98 10^6/uL (4.00-5.40); WHITE BLOOD COUNT 5.5 10^3/uL (4.0-10.0)
[2022-07-31 18:10] LABS: ALBUMIN 3.3 GM/DL (3.2-5.2); BILIRUBIN,TOTAL 0.3 MG/DL (0.2-1.0); CALCIUM LEVEL 8.7 MG/DL (8.8-10.2); CREATININE FOR GFR 2.51 MG/DL (0.55-1.30); GLOMERULAR FILTRATION RATE 20.6 (>45); MAGNESIUM LEVEL 2.5 MG/DL (1.8-2.4); POTASSIUM SERUM 4.3 MEQ/L (3.5-5.1); TOTAL PROTEIN 6.2 GM/DL (6.4-8.2)
== END ==
LOC: M WUC 15:12
PROVIDERS: ATTEND Physician Assistant
DX: R25.2 Cramp and spasm (principal); R60.0 Localized edema; R53.83 Other fatigue

== ENCOUNTER → 2022-10-01 | Outpatient (CLI) | payer MEDICARE, MEDICAID | LOC: M ADAMS 11:26 | PROVIDERS: ATTEND Physician Assistant | DX: M25.521 Pain in right elbow (principal) ==

== ENCOUNTER → 2022-10-09 | Outpatient (CLI) | payer MEDICARE, MEDICAID | LOC: M WUC 14:04 | PROVIDERS: ATTEND Physician Assistant | DX: M25.521 Pain in right elbow (principal); M79.631 Pain in right forearm ==

== ENCOUNTER → 2023-02-04 | Outpatient (REF) | payer MEDICARE, MEDICAID ==
[2023-02-04 14:19] LABS: CHOLESTEROL RISK RATIO 2.24 (<5); HDL CHOLESTEROL 65.8 MG/DL (>40); LDL CHOLESTEROL 68.6 MG/DL (<100); NON-HDL-C 82.2 MG/DL
== END ==
LOC: M LABDRWAD 12:52
PROVIDERS: ATTEND Psychiatry & Neurology Psychiatry
DX: Z79.899 Other long term (current) drug therapy (principal)

== ENCOUNTER → 2023-03-12 | Outpatient (CLI) | payer MEDICARE, MEDICAID ==
[~2023-03-12] MED LIST changes: +APAP500T10 PO; +ARIP1TAB6 PO; +CALC1CAP31 PO; +CALTTAB6 PO; +CIDA500T2 PO; +FURO20TA2 PO; +GABA-1171 PO; +IRON325T9 PO; +SPIR-10 PO; +VITA-158 PO; +[UNRECOGNIZED DRUG - CODE] PO
== END ==
LOC: M SOG 07:59
PROVIDERS: ATTEND Orthopaedic Surgery
DX: M25.561 Pain in right knee (principal)

== ENCOUNTER → 2023-06-21 | Outpatient (CLI) | payer MEDICARE, MEDICAID ==
[~2023-06-21] MED LIST changes: -ROPI1TAB3 PO; +ROPI1TAB73 PO
== END ==
LOC: M WUC 15:08
PROVIDERS: ATTEND Physician Assistant
DX: M25.521 Pain in right elbow (principal); M25.511 Pain in right shoulder

== ENCOUNTER → 2023-08-31 | Outpatient (CLI) | payer MEDICARE, MEDICAID ==
[~2023-08-31] VITALS: Ht 172.7 cm; Wt 136.4 kg
[~2023-08-31] MED LIST changes: +ISOVUE-300 61% 100ML VIAL As Ordered ONE; +LIDOCAINE 1% MDV 20ML VIAL As Ordered ONE; +LIDOCAINE W/EPINEPHRINE 1% 20ML VIAL As Ordered ONE; +MIDAZOLAM INJ 2MG/2ML VIAL As Ordered ONE; +SODIUM BICARBONATE 8.4% INJ 50MEQ 50ML VIAL As Ordered ONE; +ceFAZolin 1GM VIAL As Ordered ONE; +ceFAZolin 2 GM/D5W 50 ML IV BAG As Ordered ONE; +ceFAZolin SOD 1 GM in D5W MINI-BAG PLUS 50 ML IV ONE; +ceFAZolin SOD 2 GM in IV 1 EA IV ONE; +fentaNYL 100 MCG/2 ML INJECTION As Ordered ONE
[2023-08-31 08:16] VITALS: TEMP 97.9
[2023-08-31 08:20] LABS: HEMATOCRIT 41.1 % (36.0-47.0); HEMOGLOBIN 13.1 g/dl (12.0-15.5); MEAN CORPUSCULAR HEMOGLOBIN 31.6 pg (27.0-33.0); MEAN CORPUSCULAR HGB CONC 31.9 g/dl (32.0-36.5); PLATELET COUNT, AUTOMATED 207 10^3/uL (150-450); RED BLOOD COUNT 4.15 10^6/uL (4.00-5.40); WHITE BLOOD COUNT 4.9 10^3/uL (4.0-10.0)
[2023-08-31 08:32] LABS: INR 1.01; PARTIAL THROMBOPLASTIN TIME 25.7 SECONDS (24.8-34.2)
[2023-08-31 08:46] LABS: CALCIUM LEVEL 8.8 MG/DL (8.3-10.6); CREATININE FOR GFR 2.37 MG/DL (0.55-1.30)
[2023-08-31 09:33] LABS: MAGNESIUM LEVEL 2.4 MG/DL (1.8-2.4); POTASSIUM SERUM 4.9 MMOL/L (3.5-5.1)
[2023-08-31 11:45] VITALS: BP 145/65; O2SAT 97
== END ==
LOC: M IRPRO 07:34
PROVIDERS: ATTEND Surgery Vascular Surgery
DX: N18.4 Chronic kidney disease, stage 4 (severe) (principal)
CPT/HCPCS: 36902; 80048; 83735; 84132; 85027; 85610; 85730; 86850; 86900; 86901; 93005; 99152; 99153; C1769; J0690; J2250; J3010; Q9967

== ENCOUNTER → 2023-12-13 | Outpatient (CLI) | payer MEDICARE, MEDICAID ==
[~2023-12-13] MED LIST changes: +FERR325T14 PO; -IRON325T9 PO; -ISOVUE-300 61% 100ML VIAL As Ordered ONE; -LIDOCAINE 1% MDV 20ML VIAL As Ordered ONE; -LIDOCAINE W/EPINEPHRINE 1% 20ML VIAL As Ordered ONE; -MIDAZOLAM INJ 2MG/2ML VIAL As Ordered ONE; -SODIUM BICARBONATE 8.4% INJ 50MEQ 50ML VIAL As Ordered ONE; -ceFAZolin 1GM VIAL As Ordered ONE; -ceFAZolin 2 GM/D5W 50 ML IV BAG As Ordered ONE; -ceFAZolin SOD 1 GM in D5W MINI-BAG PLUS 50 ML IV ONE; -ceFAZolin SOD 2 GM in IV 1 EA IV ONE; -fentaNYL 100 MCG/2 ML INJECTION As Ordered ONE
== END ==
LOC: M SOG 07:52
PROVIDERS: ATTEND Orthopaedic Surgery
DX: M25.561 Pain in right knee (principal)

== ENCOUNTER → 2024-01-13 | Outpatient (CLI) | payer MEDICARE, MEDICAID | LOC: M SOG 08:42 | PROVIDERS: ATTEND Orthopaedic Surgery | DX: M54.2 Cervicalgia (principal) ==

== ENCOUNTER → 2024-02-17 | Outpatient (CLI) | payer MEDICARE, MEDICAID | LOC: M RAD 09:07 | PROVIDERS: ATTEND Nurse Practitioner Family | DX: N18.4 Chronic kidney disease, stage 4 (severe) (principal); R33.9 Retention of urine, unspecified ==

== ENCOUNTER → 2024-05-05 | Outpatient (CLI) | payer MEDICAID, MEDICARE | LOC: M PLARAD 13:02 | PROVIDERS: ATTEND Orthopaedic Surgery | DX: S83.231A Complex tear of medial meniscus, current injury, right knee, initial encounter (principal); M22.41 Chondromalacia patellae, right knee; S72.431A Displaced fracture of medial condyle of right femur, initial encounter for closed fracture; Y93.9 Activity, unspecified; Y92.9 Unspecified place or not applicable ==

== ENCOUNTER → 2024-06-26 | Outpatient (CLI) | payer MEDICARE ==
[2024-06-26 12:08] LABS: HEMATOCRIT 41.2 % (36.0-47.0); MEAN CORPUSCULAR HEMOGLOBIN 32.1 pg (27.0-33.0); MEAN CORPUSCULAR HGB CONC 31.6 g/dl (32.0-36.5); MEAN CORPUSCULAR VOLUME 101.7 fl (80.0-96.0); PLATELET COUNT, AUTOMATED 196 10^3/uL (150-450); RED BLOOD COUNT 4.05 10^6/uL (4.00-5.40)
[2024-06-26 12:41] LABS: ALBUMIN 3.4 G/DL (3.2-5.2); BILIRUBIN,TOTAL 0.3 MG/DL (0.3-1.2); CALCIUM LEVEL 8.4 MG/DL (8.3-10.6); CHOLESTEROL RISK RATIO 2.93 (<5); CREATININE FOR GFR 3.14 MG/DL (0.55-1.30); GLOMERULAR FILTRATION RATE 15.8 (>45); HDL CHOLESTEROL 51.1 MG/DL (>40); LDL CHOLESTEROL 77.9 MG/DL (<100); NON-HDL-C 98.9 MG/DL; POTASSIUM SERUM 4.2 MMOL/L (3.5-5.1); THYROID STIMULATING HORMONE 1.004 uIU/ML (0.55-4.78); TOTAL 25(OH) VITAMIN D 38.1 NG/ML (20.0-100.0); TOTAL PROTEIN 6.1 G/DL (5.7-8.2)
[2024-06-27 08:26] LABS: WHITE BLOOD COUNT 6.6 10^3/uL (4.0-10.0)
== END ==
LOC: M WUC 09:38
PROVIDERS: ATTEND Physician Assistant
DX: I12.9 Hypertensive chronic kidney disease with stage 1 through stage 4 chronic kidney disease, or unspecified chronic kidney disease (principal); E78.5 Hyperlipidemia, unspecified; E55.9 Vitamin D deficiency, unspecified; N18.4 Chronic kidney disease, stage 4 (severe)

== ENCOUNTER → 2024-08-18 | Outpatient (CLI) | payer MEDICARE, OTHER ==
[~2024-08-18] MED LIST changes: +GABA-1172 PO; -GABA-282 PO
[2024-08-18 12:30] LABS: CHOLESTEROL RISK RATIO 2.44 (<5); HDL CHOLESTEROL 65.9 MG/DL (>40); LDL CHOLESTEROL 81.3 MG/DL (<100); NON-HDL-C 95.1 MG/DL
== END ==
LOC: M WUC 08:21
PROVIDERS: ATTEND Psychiatry & Neurology Psychiatry
DX: Z79.899 Other long term (current) drug therapy (principal)

== ENCOUNTER 2024-11-14 05:22 | Emergency (ER) | payer MEDICARE, OTHER ==
[~2024-11-14] VITALS: Ht 175.3 cm; Wt 121.6 kg
[2024-11-14] MEDS ORDERED: AMLO2.5T3 (07:13)
[2024-11-14 07:19] LABS: BASO # 0.1 10^3/uL (0.0-0.2); BASO % 0.4 % (0.0-1.0); EOS # 0.1 10^3/uL (0.0-0.5); EOS % 0.6 % (0.0-3.0); HEMATOCRIT 31.5 % (36.0-47.0); HEMOGLOBIN 9.6 g/dl (12.0-15.5); LYMPH # 0.6 10^3/uL (1.5-5.0); LYMPH % 4.8 % (24.0-44.0); MEAN CORPUSCULAR HEMOGLOBIN 30.8 pg (27.0-33.0); MEAN CORPUSCULAR HGB CONC 30.5 g/dl (32.0-36.5); MONO % 7.7 % (2.0-8.0); NEUTROPHILS # 11.3 10^3/uL (1.5-8.5); NEUTROPHILS % 85.8 % (36.0-66.0); PLATELET COUNT, AUTOMATED 341 10^3/uL (150-450); RED BLOOD COUNT 3.12 10^6/uL (4.00-5.40); WHITE BLOOD COUNT 13.2 10^3/uL (4.0-10.0)
[2024-11-14 07:30] LABS: KETONE, URINE AUTO RFX NEGATIVE (NEGATIVE); NITRITE, URINE AUTO RFX NEGATIVE (NEGATIVE); RBC, URINE AUTO RFX 8 /HPF (0-3); SQUAM EPITHELIAL CELL UR AURFX 3 /HPF (0-6)
[2024-11-14 07:57] LABS: LEUKOCYTE ESTERASE UR AUTO RFX 3+ (NEGATIVE); WBC, URINE AUTO RFX 158 /HPF (0-3)
[2024-11-14 08:01] LABS: ALBUMIN 2.3 G/DL (3.2-5.2); BILIRUBIN,TOTAL 0.3 MG/DL (0.3-1.2); CALCIUM LEVEL 8.5 MG/DL (8.3-10.6); CREATININE FOR GFR 4.33 MG/DL (0.55-1.30); GLOMERULAR FILTRATION RATE 10.9 (>45); POTASSIUM SERUM 3.7 MMOL/L (3.5-5.1); TOTAL PROTEIN 5.5 G/DL (5.7-8.2)
[2024-11-14] MEDS ORDERED: BACT800T5 PO (09:17)
[2024-11-14] MEDS: BACTRIM 160MG/800MG DS TAB PO ONE (09:27)
[2024-11-14 09:36] VITALS: BP 127/58; TEMP 98.2; O2SAT 100
== END 2024-11-14 09:38 | disposition home or self-care (01) ==
LOC: M ED 05:22
DX: N39.0 Urinary tract infection, site not specified (principal); R30.0 Dysuria; N18.4 Chronic kidney disease, stage 4 (severe); F41.9 Anxiety disorder, unspecified; Z88.1 Allergy status to other antibiotic agents; Z88.6 Allergy status to analgesic agent; Z88.8 Allergy status to other drugs, medicaments and biological substances; Z79.1 Long term (current) use of non-steroidal anti-inflammatories (NSAID); Z79.899 Other long term (current) drug therapy

== ENCOUNTER → 2024-12-11 | Outpatient (CLI) | payer MEDICARE ==
[~2024-12-11] MED LIST changes: +AMLO2.5T3; +BACT800T5 PO
== END ==
LOC: M WUC 14:31
PROVIDERS: ATTEND Physician Assistant
DX: M17.12 Unilateral primary osteoarthritis, left knee (principal)

== ENCOUNTER → 2025-06-01 | Outpatient (REF) ==
[~2025-06-01] MED LIST changes: -BUPR1TAB56 PO; +BUPR200T45 PO
== END ==
LOC: M RAD 07:34 → EDSTATUS 08:00
PROVIDERS: ATTEND Internal Medicine
DX: Z01.818 Encounter for other preprocedural examination (principal); I65.23 Occlusion and stenosis of bilateral carotid arteries

== ENCOUNTER → 2025-07-10 | Outpatient (REF) | payer MEDICARE | LOC: M CARPUL 10:24 → EDSTATUS 10:30 | PROVIDERS: ATTEND Internal Medicine | DX: Z01.818 Encounter for other preprocedural examination (principal) ==

== ENCOUNTER → 2025-07-16 | Outpatient (CLI) | payer MEDICARE ==
[2025-07-16 13:43] LABS: CHOLESTEROL LEVEL 160.0 MG/DL (<200); CHOLESTEROL RISK RATIO 1.97 (<5); LDL CHOLESTEROL 74.0 MG/DL (<100); NON-HDL-C 79.0 MG/DL; TRIGLYCERIDES LEVEL 25.0 MG/DL (<150)
[2025-07-16 14:36] LABS: ESTIMATED AVERAGE GLUCOSE 82.0 MG/DL (60-110)
== END ==
LOC: M LABDRWAD 07:46
PROVIDERS: ATTEND Psychiatry & Neurology Psychiatry
DX: Z79.899 Other long term (current) drug therapy (principal)

== ENCOUNTER → 2025-08-01 | Outpatient (CLI) | payer MEDICARE | LOC: M WHC 09:22 | PROVIDERS: ATTEND Physician Assistant | DX: Z12.31 Encounter for screening mammogram for malignant neoplasm of breast (principal); R92.323 Mammographic fibroglandular density, bilateral breasts ==

== ENCOUNTER → 2025-09-19 | Outpatient (REF) | payer MEDICARE ==
[2025-09-19 15:11] LABS: HEPATITIS B SURFACE ANTIBODY NEGATIVE (POSITIVE)
== END ==
LOC: M LABDRWAD 13:08
PROVIDERS: ATTEND Internal Medicine
DX: Z01.818 Encounter for other preprocedural examination (principal); Z11.59 Encounter for screening for other viral diseases

== ENCOUNTER → 2025-09-25 | Outpatient (CLI) | payer MEDICARE | LOC: M PLAIMG 07:04 | PROVIDERS: ATTEND Pain Medicine Interventional Pain Medicine | DX: M54.14 Radiculopathy, thoracic region (principal); M41.24 Other idiopathic scoliosis, thoracic region; M51.34 Other intervertebral disc degeneration, thoracic region ==